=== PATIENT | male | born 1990 | race Caucasian/White ===

== ENCOUNTER 2017-01-16 06:46 | Emergency (ER) | payer OTHER ==
[~2017-01-16] VITALS: Ht 172.7 cm; Wt 56.7 kg
[~2017-01-16 06:46] MED LIST: /ADVA50050; /CELE20CA OR; /ESCI20TA OR; AMIT10TA2 OR; AMIT25TA2 OR; CELE100C OR; CELE10TA OR; CELE10TA PO; CELE20TA OR; DEPA500T OR; DEPA500T2 OR; FLEXERIL OR; FLEXERIL PO; IMIT100T OR; MELOPOW OR; MELOPOW PO; MOTR200T4 PO; NICORETTE GUM PO; PROP10TAB OR; PROP60TA OR; PROV90AE; RISP1TAB OR; TRAZ50TA OR; ZYPR15TA OR
[2017-01-16 06:49] VITALS: BP 118/74
[2017-01-16] MEDS ORDERED: PERC5TAB6 PO (06:54)
[2017-01-16] MEDS ORDERED: GI COCKTAIL 50ML BTL(HYOSCYAMINE/MAALOX/LIDOCAINE VISCOUS)(1:3:1) PO ONE (08:00)
== END 2017-01-16 08:08 | disposition home or self-care (01) ==
LOC: M ED 07:48
DX: K29.00 Acute gastritis without bleeding (principal); T65.891A Toxic effect of other specified substances, accidental (unintentional), initial encounter; X58.XXXA Exposure to other specified factors, initial encounter; Y92.89 Other specified places as the place of occurrence of the external cause; F32.9 Major depressive disorder, single episode, unspecified; R56.9 Unspecified convulsions; M54.5 Low back pain; F17.210 Nicotine dependence, cigarettes, uncomplicated; Z91.040 Latex allergy status

== ENCOUNTER 2017-04-10 11:11 | Emergency (ER) | payer MEDICAID, OTHER, SELFPAY ==
[~2017-04-10] VITALS: Ht 172.7 cm; Wt 57.2 kg
[~2017-04-10 11:11] MED LIST changes: +PERC5TAB12 PO
[2017-04-10] MEDS ORDERED: TYLE325T5 PO (11:18)
[2017-04-10] MEDS ORDERED: IBUP-1022 PO (11:18)
[2017-04-10] MEDS ORDERED: GASTROGRAFIN SOLUTION 30ML (Q9963) As Ordered ONE (11:24)
[2017-04-10] MEDS ORDERED: ONDANSETRON 4MG/2ML VIAL (J2405) IV ONE (12:00)
[2017-04-10] MEDS ORDERED: MORPHINE 2 MG/ML 1ML SYRINGE IV ONE (12:00)
[2017-04-10] MEDS ORDERED: GASTROGRAFIN SOLUTION 30ML (Q9963) PO ONE ×2 (12:30→13:00)
[2017-04-10] MEDS ORDERED: ISOVUE-370 76% 100ML VIAL (Q9967) As Ordered ONE (13:39)
[2017-04-10 14:18] LABS: BASO # 0.1 K/mm3 (0.0-0.2); BASO % 0.4 % (0.0-1.0); EOS # 0.1 K/mm3 (0.0-0.50); EOS % 0.5 % (0.0-3.0); LARGE UNSTAINED CELL # 0.1 K/mm3 (0.0-0.4); LARGE UNSTAINED CELL % 0.9 % (0.0-4.0); LYMPH # 1.4 K/mm3 (1.5-6.5); LYMPH % 10.4 % (24.0-44.0); MEAN CORPUSCULAR HEMOGLOBIN 31.5 pg (27.0-33.0); MEAN CORPUSCULAR HGB CONC 35.3 g/dl (32.0-36.5); MEAN CORPUSCULAR VOLUME 89.4 fl (80.0-96.0); MONO # 0.5 K/mm3 (0.0-0.8); MONO % 3.7 % (0.0-5.0); NEUTROPHILS # 11.7 K/mm3 (1.8-7.7); PLATELET COUNT, AUTOMATED 220 k/mm3 (150-450); RED CELL DISTRIBUTION WIDTH 11.8 % (11.5-14.5); WHITE BLOOD COUNT 13.9 K/mm3 (4.0-10.0)
[2017-04-10 14:22] LABS: ALBUMIN 4.1 GM/DL (3.2-5.2); ALBUMIN/GLOBULIN RATIO 1.17 (1.00-1.93); ALKALINE PHOSPHATASE 62 U/L (45-117); ALT/SGPT 34 U/L (12-78); AMYLASE 43 U/L (25-115); ANION GAP 4 MEQ/L (8-16); AST/SGOT 23 U/L (15-37); BILIRUBIN,DIRECT 0.2 MG/DL (0.0-0.2); BILIRUBIN,TOTAL 0.7 MG/DL (0.2-1.0); BLOOD UREA NITROGEN 13 MG/DL (7-18); CALCIUM LEVEL 8.7 MG/DL (8.5-10.1); CARBON DIOXIDE LEVEL 29 MEQ/L (21-32); CHLORIDE LEVEL 104 MEQ/L (98-107); GLOMERULAR FILTRATION RATE > 60.0 (>60); GLUCOSE, FASTING 85 MG/DL (70-105); POTASSIUM SERUM 4.4 MEQ/L (3.5-5.1); SODIUM LEVEL 137 MEQ/L (136-145); TOTAL PROTEIN 7.6 GM/DL (6.4-8.2)
--- NOTE | 2017-04-10 14:31 | REP ---
Clinical: Left lower quadrant pain. Technique: Axial contrast enhanced images from the lung bases to the pubic symphysis using oral and 100 ml Isovue 370 intravenous contrast material with coronal and sagittal re-formations. Findings: Acute left lower lobe infiltrate likely related to patient's symptoms. Liver, spleen, pancreas, gallbladder, bilateral adrenal glands and kidneys are normal. The enteric system is without obstruction or acute inflammatory process. Pelvis demonstrates normal bladder and age appropriate prostate/seminal vesicles. Normal terminal ileum and appendix identified in the right lower quadrant. No ascites. No free air. No adenopathy. Vasculature normal. Musculoskeletal structures are intact. Impression: Acute left lower lobe pneumonia. Signed by Andres Mack MD 04/10/2017 02:22 P
[2017-04-10] MEDS ORDERED: ZITHTAB PO (14:32)
[2017-04-10] MEDS ORDERED: REGL10TA6 PO (14:32)
[2017-04-10 14:39] VITALS: BP 120/69
== END 2017-04-10 14:42 | disposition home or self-care (01) ==
LOC: M ED 11:11
DX: J18.9 Pneumonia, unspecified organism (principal); R11.2 Nausea with vomiting, unspecified; R10.32 Left lower quadrant pain; G40.909 Epilepsy, unspecified, not intractable, without status epilepticus; F32.9 Major depressive disorder, single episode, unspecified; F41.9 Anxiety disorder, unspecified; F17.200 Nicotine dependence, unspecified, uncomplicated; Z91.040 Latex allergy status
CPT/HCPCS: 74177; 80048; 80076; 81001; 82150; 83690; 85025; 86140; 96374; 96375; 99283; J2405; Q9963; Q9967

== ENCOUNTER 2017-06-02 21:37 | Emergency (ER) | payer MEDICAID, OTHER, SELFPAY ==
[~2017-06-02] VITALS: Ht 172.7 cm; Wt 60.5 kg
[~2017-06-02 21:37] MED LIST changes: +IBUP-1022 PO; +REGL10TA6 PO; +TYLE325T5 PO; +ZITHTAB PO
[2017-06-02] MEDS ORDERED: PROAAER10 (21:47)
[2017-06-02] MEDS ORDERED: IBUP-1022 PO (22:29)
[2017-06-02] MEDS ORDERED: BACT800T5 PO (22:29)
[2017-06-02] MEDS ORDERED: IBUPROFEN 600 MG TAB PO ONE (22:30)
[2017-06-02] MEDS ORDERED: BACTRIM 160MG/800MG DS TAB PO ONE (22:30)
[2017-06-02 22:46] VITALS: BP 111/68
== END 2017-06-02 22:53 | disposition home or self-care (01) ==
LOC: M ED 21:37
DX: L03.211 Cellulitis of face (principal); J45.909 Unspecified asthma, uncomplicated; F17.200 Nicotine dependence, unspecified, uncomplicated; Z91.040 Latex allergy status

== ENCOUNTER → 2017-08-25 | Outpatient (CLI) | payer OTHER ==
[~2017-08-25] MED LIST changes: +BACT800T5 PO; +PROAAER10
--- NOTE | 2017-08-25 19:25 | REP ---
CHEST, TWO VIEWS: COMPARISON: 07/22/2015 There is no evidence of acute infiltrate. No pleural effusion is seen. The heart is normal in size. The mediastinal silhouette is unremarkable. The visualized osseous structures are intact. IMPRESSION: No acute pulmonary disease. Signed by Rush Quezada MD 08/25/2017 08:14 P
[2017-08-25 19:34] LABS: BASO # 0.1 10^3/uL (0.0-0.2); BASO % 0.2 % (0.0-1.0); IMMATURE GRANULOCYTE % 1.2 % (0-0); LYMPH # 1.9 10^3/uL (1.5-6.5); MEAN CORPUSCULAR HEMOGLOBIN 29.9 pg (27.0-33.0); MEAN CORPUSCULAR HGB CONC 34.1 g/dl (32.0-36.5); MEAN CORPUSCULAR VOLUME 87.6 fl (80.0-96.0); MONO # 1.3 10^3/uL (0.0-0.8); MONO % 5.3 % (0.0-5.0); NEUTROPHILS # 20.8 10^3/uL (1.8-7.7); NEUTROPHILS % 85.3 % (36.0-66.0); PLATELET COUNT, AUTOMATED 208 10^3/uL (150-450); RED CELL DISTRIBUTION WIDTH 12.3 % (11.5-14.5); WHITE BLOOD COUNT 24.3 10^3/uL (4.0-10.0)
[2017-08-25 19:43] LABS: ALBUMIN 4.5 GM/DL (3.2-5.2); ALBUMIN/GLOBULIN RATIO 1.45 (1.00-1.93); ALKALINE PHOSPHATASE 62 U/L (45-117); ALT/SGPT 19 U/L (12-78); ANION GAP 8 MEQ/L (8-16); AST/SGOT 15 U/L (7-37); BILIRUBIN,TOTAL 2.2 MG/DL (0.2-1.0); BLOOD UREA NITROGEN 12 MG/DL (7-18); CALCIUM LEVEL 9.3 MG/DL (8.5-10.1); CARBON DIOXIDE LEVEL 28 MEQ/L (21-32); CHLORIDE LEVEL 99 MEQ/L (98-107); CREATININE FOR GFR 1.14 MG/DL (0.70-1.30); GLOMERULAR FILTRATION RATE > 60.0 (>60); GLUCOSE, FASTING 91 MG/DL (70-105); POTASSIUM SERUM 4.2 MEQ/L (3.5-5.1); SODIUM LEVEL 135 MEQ/L (136-145); TOTAL PROTEIN 7.6 GM/DL (6.4-8.2)
== END ==
LOC: M WUC 18:08
PROVIDERS: ATTEND Physician Assistant
DX: R50.9 Fever, unspecified (principal); R05 Cough; L04.0 Acute lymphadenitis of face, head and neck

== ENCOUNTER 2017-12-22 17:41 | Emergency (ER) | payer OTHER ==
[2017-12-22] MEDS ORDERED: ISOVUE-370 76% 100ML VIAL (Q9967) As Ordered (19:18)
[2017-12-22] MEDS: MORPHINE 2 MG/ML 1ML SYRINGE (J2270) IV (19:55)
[2017-12-22 20:02] LABS: BASO % 0.3 % (0.0-1.0); EOS # 0.1 10^3/uL (0.0-0.50); EOS % 0.6 % (0.0-3.0); HEMATOCRIT 35.9 % (42.0-52.0); HEMOGLOBIN 12.8 g/dl (14.0-18.0); IMMATURE GRANULOCYTE % 0.3 % (0-3.0); LYMPH % 19.9 % (24.0-44.0); MEAN CORPUSCULAR HEMOGLOBIN 30.7 pg (27.0-33.0); MEAN CORPUSCULAR HGB CONC 35.7 g/dl (32.0-36.5); MEAN CORPUSCULAR VOLUME 86.1 fl (80.0-96.0); MONO # 0.5 10^3/uL (0.0-0.8); MONO % 4.9 % (0.0-5.0); NEUTROPHILS # 7.5 10^3/uL (1.8-7.7); PLATELET COUNT, AUTOMATED 194 10^3/uL (150-450); RED BLOOD COUNT 4.17 10^6/uL (4.30-6.10); RED CELL DISTRIBUTION WIDTH 12.6 % (11.5-14.5); WHITE BLOOD COUNT 10.1 10^3/uL (4.0-10.0)
[2017-12-22 20:36] LABS: ANION GAP 7 MEQ/L (8-16); BLOOD UREA NITROGEN 12 MG/DL (7-18); CALCIUM LEVEL 8.4 MG/DL (8.5-10.1); CARBON DIOXIDE LEVEL 27 MEQ/L (21-32); CHLORIDE LEVEL 107 MEQ/L (98-107); CPK CREATINE PHOSPHOKINASE 148 U/L (39-308); CREATININE FOR GFR 0.86 MG/DL (0.70-1.30); GLOMERULAR FILTRATION RATE > 60.0 (>60); GLUCOSE, FASTING 87 MG/DL (70-100); MB/CK RELATIVE INDEX 0.67 (< OR =4); POTASSIUM SERUM 3.8 MEQ/L (3.5-5.1); SODIUM LEVEL 141 MEQ/L (136-145); TROPONIN I < 0.02 NG/ML (< 0.10)
[2017-12-22] MEDS: NORCO 5/325MG TABLET (BULK FOR ED) PO (21:01)
== END 2017-12-22 21:13 | disposition home or self-care (01) ==
LOC: M ED 17:41
DX: Z04.1 Encounter for examination and observation following transport accident (principal); S16.1XXA Strain of muscle, fascia and tendon at neck level, initial encounter; V57.5XXA Driver of pick-up truck or van injured in collision with fixed or stationary object in traffic accident, initial encounter; Y92.410 Unspecified street and highway as the place of occurrence of the external cause; F17.200 Nicotine dependence, unspecified, uncomplicated; Z91.040 Latex allergy status
CPT/HCPCS: Q9967

== ENCOUNTER 2018-03-31 19:22 | Emergency (ER) | payer OTHER ==
[2018-03-31] MEDS: NORCO, ANEXSIA 5/325MG TABLET (HYDROcodone/ACETAMINOPHEN) PO (20:45)
== END 2018-03-31 23:13 | disposition home or self-care (01) ==
LOC: M ED 19:22
DX: S40.012A Contusion of left shoulder, initial encounter (principal); S20.229A Contusion of unspecified back wall of thorax, initial encounter; W50.0XXA Accidental hit or strike by another person, initial encounter; Y92.099 Unspecified place in other non-institutional residence as the place of occurrence of the external cause; Y93.9 Activity, unspecified; Y99.9 Unspecified external cause status; R56.9 Unspecified convulsions; J45.909 Unspecified asthma, uncomplicated; Z72.0 Tobacco use; Z91.040 Latex allergy status
CPT/HCPCS: 73030

== ENCOUNTER 2018-06-29 19:16 | Emergency (ER) | payer OTHER | END 2018-06-29 21:36 | disposition left against medical advice (07) | LOC: M ED 19:16 | DX: Z71.1 Person with feared health complaint in whom no diagnosis is made (principal); Z53.21 Procedure and treatment not carried out due to patient leaving prior to being seen by health care provider ==

== ENCOUNTER 2018-07-30 10:21 | Outpatient (RCR) | payer OTHER | END 2018-08-08 | LOC: M PT 10:21 | DX: M25.512 Pain in left shoulder (principal); M54.2 Cervicalgia ==

== ENCOUNTER 2018-08-15 10:56 | Outpatient (RCR) | payer OTHER | END 2018-09-07 | LOC: M PT 10:56 | DX: M25.512 Pain in left shoulder (principal); M54.2 Cervicalgia | CPT/HCPCS: 97010 ==

== ENCOUNTER → 2018-12-18 | Outpatient (REF) | payer OTHER ==
[~2018-12-18] MED LIST changes: +BACL10TA2 PO; +DULO1CAP PO; +IBUP80TA PO; +VENTAER INH
[2018-12-18 18:26] LABS: APPEARANCE, URINE CLEAR (CLEAR); BACTERIA, URINE AUTO NEGATIVE (NEGATIVE); BILIRUBIN, URINE AUTO NEGATIVE (NEGATIVE); BLOOD, URINE BLOOD NEGATIVE (NEGATIVE); COLOR, URINE STRAW (YELLOW); GLUCOSE, URINE (UA) AUTO NEGATIVE (NEGATIVE); KETONE, URINE AUTO NEGATIVE (NEGATIVE); LEUKOCYTE ESTERASE, URINE AUTO NEGATIVE (NEGATIVE); NITRITE, URINE AUTO NEGATIVE (NEGATIVE); PROTEIN, URINE AUTO NEGATIVE (NEGATIVE); RBC, URINE AUTO 0 /HPF (0-3); SPECIFIC GRAVITY URINE AUTO 1.004 (1.002-1.035); SQUAMOUS EPITHELIAL CELL UR AU 0 /HPF (0-6); UROBILINOGEN, URINE AUTO 0.2 mg/dL (0.0-2.0); WBC, URINE AUTO 0 /HPF (0-3)
[2018-12-18 19:23] LABS: BASO # 0.1 10^3/uL (0.0-0.2); BASO % 0.4 % (0.0-1.0); EOS # 0.4 10^3/uL (0.0-0.50); EOS % 3.3 % (0.0-3.0); HEMATOCRIT 47.3 % (42.0-52.0); HEMOGLOBIN 15.9 g/dl (13.5-17.5); LYMPH # 2.6 10^3/uL (1.5-6.5); LYMPH % 21.3 % (24.0-44.0); MEAN CORPUSCULAR HEMOGLOBIN 31.2 pg (27.0-33.0); MEAN CORPUSCULAR HGB CONC 33.6 g/dl (32.0-36.5); MEAN CORPUSCULAR VOLUME 92.7 fl (80.0-96.0); MONO # 0.5 10^3/uL (0.0-0.8); MONO % 3.7 % (0.0-5.0); NEUTROPHILS # 8.6 10^3/uL (1.8-7.7); NEUTROPHILS % 71.1 % (36.0-66.0); PLATELET COUNT, AUTOMATED 236 10^3/uL (150-450); WHITE BLOOD COUNT 12.1 10^3/uL (4.0-10.0)
[2018-12-18 19:24] LABS: ALBUMIN 4.4 GM/DL (3.2-5.2); ALT/SGPT 29 U/L (12-78); BILIRUBIN,TOTAL 1.3 MG/DL (0.2-1.0); BLOOD UREA NITROGEN 8 MG/DL (7-18); CALCIUM LEVEL 8.7 MG/DL (8.5-10.1); CARBON DIOXIDE LEVEL 29 MEQ/L (21-32); CHLORIDE LEVEL 106 MEQ/L (98-107); CHOLESTEROL LEVEL 225 MG/DL (<200); CHOLESTEROL RISK RATIO 6.428 (<5); CREATININE FOR GFR 1.11 MG/DL (0.70-1.30); FOLATE 4.4 NG/ML; GLOMERULAR FILTRATION RATE > 60.0 (>60); GLUCOSE, FASTING 83 MG/DL (70-100); HDL CHOLESTEROL 35 MG/DL (>40); LDL CHOLESTEROL 165 MG/DL (<100); NON-HDL-C 190 MG/DL; POTASSIUM SERUM 4.2 MEQ/L (3.5-5.1); SODIUM LEVEL 141 MEQ/L (136-145); THYROID STIMULATING HORMONE 0.637 uIU/ML (0.358-3.740); TOTAL 25(OH) VITAMIN D 12.4 NG/ML (30.0-100.0); TOTAL PROTEIN 7.6 GM/DL (6.4-8.2); TRIGLYCERIDES LEVEL 123 MG/DL (<150); VITAMIN B12 LEVEL 897 PG/ML
[2018-12-18 19:30] LABS: HEMOGLOBIN A1c 5.3 %
== END ==
LOC: M LAB REF 17:08
PROVIDERS: ATTEND Nurse Practitioner Family
DX: Z13.9 Encounter for screening, unspecified (principal)

== ENCOUNTER 2019-05-11 13:31 | Emergency (ER) | payer MEDICAID, OTHER, SELFPAY ==
[~2019-05-11] VITALS: Ht 172.7 cm; Wt 60.9 kg
[~2019-05-11 13:31] MED LIST changes: -/ADVA50050; -/CELE20CA OR; -/ESCI20TA OR; +ADVA1AER2; +CELE1CAP4 OR; -DULO1CAP PO; +DULO1CAP4 PO; +LEXA1TAB2 OR
[2019-05-11 13:32] VITALS: BP 124/85
[2019-05-11] MEDS ORDERED: MAGICMW SSP (13:55)
== END 2019-05-11 14:08 | disposition home or self-care (01) ==
LOC: M ED 13:31
DX: S01.512A Laceration without foreign body of oral cavity, initial encounter (principal); X58.XXXA Exposure to other specified factors, initial encounter; Y92.9 Unspecified place or not applicable; Y93.89 Activity, other specified; Y99.9 Unspecified external cause status; R56.9 Unspecified convulsions; J45.909 Unspecified asthma, uncomplicated; M54.9 Dorsalgia, unspecified; F41.9 Anxiety disorder, unspecified; F32.9 Major depressive disorder, single episode, unspecified; Z87.440 Personal history of urinary (tract) infections; Z72.0 Tobacco use; Z91.040 Latex allergy status

== ENCOUNTER → 2019-08-21 | Outpatient (REF) | payer OTHER ==
[~2019-08-21] MED LIST changes: +MAGICMW SSP
== END ==
LOC: M LAB REF 12:41
PROVIDERS: ATTEND Nurse Practitioner Family
DX: J02.9 Acute pharyngitis, unspecified (principal)

== ENCOUNTER → 2019-09-03 | Outpatient (REF) | payer OTHER ==
[~2019-09-03] MED LIST changes: +ACET-683 PO
[2019-09-03 12:56] LABS: ALBUMIN 4.3 GM/DL (3.2-5.2); ALT/SGPT 18 U/L (12-78); BILIRUBIN,TOTAL 0.5 MG/DL (0.2-1.0); BLOOD UREA NITROGEN 8 MG/DL (7-18); CALCIUM LEVEL 9.2 MG/DL (8.5-10.1); CARBON DIOXIDE LEVEL 28 MEQ/L (21-32); CHLORIDE LEVEL 107 MEQ/L (98-107); CREATININE FOR GFR 1.11 MG/DL (0.70-1.30); GLOMERULAR FILTRATION RATE > 60.0 (>60); GLUCOSE, FASTING 98 MG/DL (70-100); POTASSIUM SERUM 4.5 MEQ/L (3.5-5.1); SODIUM LEVEL 139 MEQ/L (136-145); TOTAL PROTEIN 7.6 GM/DL (6.4-8.2)
[2019-09-03 12:57] LABS: BASO # 0.1 10^3/uL (0.0-0.2); BASO % 0.8 % (0.0-1.0); EOS # 0.5 10^3/uL (0.0-0.5); EOS % 7.6 % (0.0-3.0); HEMOGLOBIN 15.5 g/dl (13.5-17.5); LYMPH # 2.8 10^3/uL (1.5-5.0); LYMPH % 46.2 % (24.0-44.0); MEAN CORPUSCULAR HGB CONC 33.7 g/dl (32.0-36.5); MONO # 0.3 10^3/uL (0.0-0.8); NEUTROPHILS # 2.4 10^3/uL (1.5-8.5); NEUTROPHILS % 40.2 % (36.0-66.0); PLATELET COUNT, AUTOMATED 238 10^3/uL (150-450); WHITE BLOOD COUNT 6.1 10^3/uL (4.0-10.0)
== END ==
LOC: M LAB REF 11:47
PROVIDERS: ATTEND Nurse Practitioner Family
DX: M79.644 Pain in right finger(s) (principal)

== ENCOUNTER 2019-09-04 11:59 | Emergency (ER) | payer MEDICAID, OTHER ==
[~2019-09-04] VITALS: Ht 172.7 cm; Wt 61.5 kg
[2019-09-04 11:59] VITALS: BP 126/96
[~2019-09-04 11:59] MED LIST changes: -ACET-683 PO
[2019-09-04] MEDS ORDERED: IBUP-1022 PO (12:08)
[2019-09-04] MEDS ORDERED: ACET-683 PO (12:08)
[2019-09-04] MEDS ORDERED: NORCO, ANEXSIA 5/325MG TABLET (HYDROcodone/ACETAMINOPHEN) PO ONE (12:45)
--- NOTE | 2019-09-04 12:46 | REP ---
RIGHT 3RD DIGIT: Four views of right 3rd digit are performed. There is no acute fracture, dislocation, or intrinsic bone disease. IMPRESSION: No fracture or dislocation. Electronically Signed by Rush Quezada MD 09/04/2019 12:49 P
== END 2019-09-04 13:20 | disposition home or self-care (01) ==
LOC: M ED 11:59
DX: S60.031A Contusion of right middle finger without damage to nail, initial encounter (principal); W20.8XXA Other cause of strike by thrown, projected or falling object, initial encounter; Y92.098 Other place in other non-institutional residence as the place of occurrence of the external cause; F17.210 Nicotine dependence, cigarettes, uncomplicated; Z91.040 Latex allergy status

== ENCOUNTER 2020-01-06 12:15 | Emergency (ER) | payer MEDICAID, OTHER ==
[~2020-01-06] VITALS: Ht 172.7 cm; Wt 59.9 kg
[~2020-01-06 12:15] MED LIST changes: +ACET-683 PO
[2020-01-06] MEDS ORDERED: CYCLOBENZAPRINE 5MG TABLET PO ONE (13:15)
[2020-01-06] MEDS ORDERED: KETOROLAC 60 MG/2 ML VIAL (J1885) IM ONE (13:15)
--- NOTE | 2020-01-06 13:32 | REP ---
REASON FOR EXAM: Trauma. There is no pertinent prior for comparison. FINDINGS: The joint spaces are symmetric and relatively well maintained. There is no evidence of acute fracture or destructive osseous lesion. IMPRESSION: Negative hand. Electronically Signed by Joe Ayoub DO 01/06/2020 02:09 P
--- NOTE | 2020-01-06 13:33 | REP ---
REASON FOR EXAM: Trauma. FINDINGS: Five views of the ribs show no acute fracture or destructive osseous lesion. The accompanying frontal view of the chest shows no cardiomegaly, infiltrates, effusions or pneumothoraces. IMPRESSION: Negative left ribs series. Electronically Signed by Joe Ayoub DO 01/06/2020 02:09 P
[2020-01-06 14:14] VITALS: BP 119/70
== END 2020-01-06 14:16 | disposition home or self-care (01) ==
LOC: M ED 12:15
DX: M79.641 Pain in right hand (principal); R07.81 Pleurodynia; Y04.8XXA Assault by other bodily force, initial encounter; Y07.02 Wife, perpetrator of maltreatment and neglect; J45.909 Unspecified asthma, uncomplicated; R56.9 Unspecified convulsions; F33.9 Major depressive disorder, recurrent, unspecified; F41.9 Anxiety disorder, unspecified; Z91.040 Latex allergy status; F17.210 Nicotine dependence, cigarettes, uncomplicated
CPT/HCPCS: 71101; 73130; 96372; 99283; J1885

== ENCOUNTER 2020-10-01 09:28 | Emergency (ER) | payer OTHER ==
[~2020-10-01] VITALS: Ht 172.7 cm; Wt 59.1 kg
[2020-10-01] MEDS ORDERED: ASPIRIN 81 MG CHEW TABLET PO ONE (10:00)
[2020-10-01 10:27] LABS: BASO % 0.3 % (0.0-1.0); EOS # 0.4 10^3/uL (0.0-0.5); EOS % 6.4 % (0.0-3.0); HEMATOCRIT 41.3 % (42.0-52.0); HEMOGLOBIN 13.5 g/dl (13.5-17.5); LYMPH # 2.5 10^3/uL (1.5-5.0); LYMPH % 40.5 % (24.0-44.0); MEAN CORPUSCULAR HEMOGLOBIN 29.2 pg (27.0-33.0); MEAN CORPUSCULAR HGB CONC 32.7 g/dl (32.0-36.5); MEAN CORPUSCULAR VOLUME 89.2 fl (80.0-96.0); MONO # 0.3 10^3/uL (0.0-0.8); MONO % 5.6 % (0.0-5.0); NEUTROPHILS # 2.9 10^3/uL (1.5-8.5); NEUTROPHILS % 46.9 % (36.0-66.0); PLATELET COUNT, AUTOMATED 213 10^3/uL (150-450); RED BLOOD COUNT 4.63 10^6/uL (4.30-6.10); WHITE BLOOD COUNT 6.1 10^3/uL (4.0-10.0)
[2020-10-01 10:39] LABS: INR 0.88; PROTHROMBIN TIME 12.1 SECONDS (12.5-14.3)
[2020-10-01 10:40] LABS: PARTIAL THROMBOPLASTIN TIME 34.5 SECONDS (24.2-38.5)
--- NOTE | 2020-10-01 10:41 | REP ---
INDICATION: CHEST PAIN COMPARISON: 12/10/2019 TECHNIQUE: PA and lateral. FINDINGS: The mediastinum and cardiac silhouette are normal. The lung phelps are clear and without acute consolidation, effusion, or pneumothorax. The skeletal structures are intact and normal. IMPRESSION: No acute cardiopulmonary process. <Electronically signed by Andres Mack > 10/01/20 [id number]
[2020-10-01 10:58] LABS: ALBUMIN 3.8 GM/DL (3.2-5.2); ALT/SGPT 45 U/L (12-78); BILIRUBIN,DIRECT 0.1 MG/DL (0.0-0.2); BILIRUBIN,TOTAL 0.6 MG/DL (0.2-1.0); BLOOD UREA NITROGEN 10 MG/DL (7-18); CALCIUM LEVEL 9.5 MG/DL (8.5-10.1); CARBON DIOXIDE LEVEL 29 MEQ/L (21-32); CHLORIDE LEVEL 107 MEQ/L (98-107); CK-MB VALUE MASS < 1.0 NG/ML (<3.6); CPK CREATINE PHOSPHOKINASE 68 U/L (39-308); CREATININE FOR GFR 0.88 MG/DL (0.70-1.30); FREE T4 1.17 NG/DL (0.76-1.46); GLOMERULAR FILTRATION RATE > 60.0 (>60); GLUCOSE, FASTING 93 MG/DL (70-100); LIPASE 117 U/L (73-393); MB/CK RELATIVE INDEX 1.47 (< OR =4); POTASSIUM SERUM 3.9 MEQ/L (3.5-5.1); SODIUM LEVEL 139 MEQ/L (136-145); TOTAL PROTEIN 6.7 GM/DL (6.4-8.2); TROPONIN I < 0.02 NG/ML (< 0.10)
[2020-10-01 11:05] LABS: D-DIMER QUANT < 270 ng/ml (<500)
[2020-10-01 12:00] VITALS: BP 122/74
--- NOTE | 2020-10-02 07:36 | ECGEPIP ---
[facility] - ED Test Date: 2020-10-01 Pat Name: DEBORAH MARTINEZ Department: Room: - Gender: Male Station Engineer: huey : 1990 Requested By: AMANDEEP Ochoa Order Number: [id number] Reading MD: Nasrin Vera Measurements Intervals [place] Rate: 57 P: 50 OR: 145 QRS: 41 QRSD: 102 T: 37 QT: 400 QTc: 390 Interpretive Statements SINUS BRADYCARDIA MODERATE ST DEPRESSION SIMILAR 12/22/17 Electronically Signed on 10-02-2020 7:35:43 EST by Nasrin Vera
== END 2020-10-01 12:32 | disposition left against medical advice (07) ==
LOC: M ED 09:28 → EDBD 09:28 → M ED 12:32
DX: R07.9 Chest pain, unspecified (principal); R06.02 Shortness of breath; Z91.040 Latex allergy status; Z86.69 Personal history of other diseases of the nervous system and sense organs

== ENCOUNTER 2022-04-07 15:33 | Emergency (ER) | payer OTHER ==
[~2022-04-07] VITALS: Ht 170.2 cm; Wt 61.4 kg
[2022-04-07 16:09] LABS: HEMATOCRIT 41.3 % (42.0-52.0); HEMOGLOBIN 14.7 g/dl (13.5-17.5); MEAN CORPUSCULAR HEMOGLOBIN 31.7 pg (27.0-33.0); MEAN CORPUSCULAR HGB CONC 35.6 g/dl (32.0-36.5); MEAN CORPUSCULAR VOLUME 89.2 fl (80.0-96.0); PLATELET COUNT, AUTOMATED 270 10^3/uL (150-450); RED BLOOD COUNT 4.63 10^6/uL (4.30-6.10); WHITE BLOOD COUNT 8.5 10^3/uL (4.0-10.0)
[2022-04-07 16:43] LABS: ALBUMIN 4.1 GM/DL (3.2-5.2); ALT/SGPT 16 U/L (12-78); BILIRUBIN,DIRECT 0.3 MG/DL (0.0-0.2); BILIRUBIN,TOTAL 0.9 MG/DL (0.2-1.0); BLOOD UREA NITROGEN 10 MG/DL (7-18); CALCIUM LEVEL 9.3 MG/DL (8.5-10.1); CARBON DIOXIDE LEVEL 24 MEQ/L (21-32); CHLORIDE LEVEL 108 MEQ/L (98-107); CREATININE FOR GFR 1.03 MG/DL (0.70-1.30); ETHYL ALCOHOL (ETHANOL) < 0.003 % (0.000-0.010); GLOMERULAR FILTRATION RATE > 60.0 (>60); GLUCOSE, FASTING 99 MG/DL (70-100); POTASSIUM SERUM 3.5 MEQ/L (3.5-5.1); SALICYLATE LEVEL 4.2 MG/DL (5.0-30.0); SODIUM LEVEL 141 MEQ/L (136-145); TOTAL PROTEIN 7.4 GM/DL (6.4-8.2)
[2022-04-07 16:51] LABS: AMPHETAMINES LEVEL URINE NEGATIVE (NEGATIVE); BARBITURATES URINE NEGATIVE (NEGATIVE); BENZODIAZEPINES URINE NEGATIVE (NEGATIVE); CANNABINOIDS URINE POSITIVE (NEGATIVE); COCAINE METABOLITE URINE NEGATIVE (NEGATIVE); METHADONE URINE NEGATIVE (NEGATIVE); OPIATES URINE NEGATIVE (NEGATIVE); PHENCYCLIDINE URINE NEGATIVE (NEGATIVE)
[2022-04-07 16:55] LABS: RSV AMPLIFICATION NEGATIVE (NEGATIVE)
[2022-04-07 18:11] VITALS: BP 115/80
[2022-04-07 19:42] LABS: ACETAMINOPHEN LEVEL < 2.0 UG/ML (0.0-30.0)
== END 2022-04-07 18:13 | disposition home or self-care (01) ==
LOC: M ED 15:33
DX: F43.20 Adjustment disorder, unspecified (principal); F31.9 Bipolar disorder, unspecified; Z91.040 Latex allergy status; F17.200 Nicotine dependence, unspecified, uncomplicated

== ENCOUNTER 2023-12-13 09:18 | Emergency (ER) | payer OTHER, SELFPAY ==
[~2023-12-13] VITALS: Ht 172.7 cm; Wt 56.8 kg
[2023-12-13 12:02] LABS: BASO % 0.4 % (0.0-1.0); EOS % 0.1 % (0.0-3.0); HEMATOCRIT 46.6 % (42.0-52.0); HEMOGLOBIN 16.4 g/dl (13.5-17.5); LYMPH # 1.9 10^3/uL (1.5-5.0); LYMPH % 22.8 % (24.0-44.0); MEAN CORPUSCULAR HEMOGLOBIN 31.4 pg (27.0-33.0); MEAN CORPUSCULAR HGB CONC 35.2 g/dl (32.0-36.5); MEAN CORPUSCULAR VOLUME 89.1 fl (80.0-96.0); MONO # 0.4 10^3/uL (0.0-0.8); MONO % 5.1 % (2.0-8.0); NEUTROPHILS # 5.9 10^3/uL (1.5-8.5); NEUTROPHILS % 71.2 % (36.0-66.0); PLATELET COUNT, AUTOMATED 285 10^3/uL (150-450); RED BLOOD COUNT 5.23 10^6/uL (4.30-6.10); WHITE BLOOD COUNT 8.3 10^3/uL (4.0-10.0)
[2023-12-13] MEDS: NS 1,000 ML IV ONE (12:28)
[2023-12-13 12:29] LABS: C REACTIVE PROTEIN QUANTITATIV < 0.40 MG/DL (<1.0); LIPASE 37 U/L (12-53)
[2023-12-13 12:30] LABS: RSV AMPLIFICATION NEGATIVE (NEGATIVE)
[2023-12-13 12:32] LABS: ALBUMIN 4.6 G/DL (3.2-5.2); ALKALINE PHOSPHATASE 62 U/L (46-116); ALT/SGPT 14 U/L (7.0-40); AST/SGOT 13 U/L (<34); BILIRUBIN,DIRECT 0.4 MG/DL (<0.4); BILIRUBIN,TOTAL 1.3 MG/DL (0.3-1.2); BLOOD UREA NITROGEN 10 MG/DL (9-23); CALCIUM LEVEL 9.1 MG/DL (8.5-10.1); CARBON DIOXIDE LEVEL 28 MMOL/L (20-31); CHLORIDE LEVEL 105 MMOL/L (98-107); CREATININE FOR GFR 0.97 MG/DL (0.70-1.30); GLOMERULAR FILTRATION RATE > 60.0 (>60); GLUCOSE, FASTING 101 MG/DL (60-100); POTASSIUM SERUM 4.1 MMOL/L (3.5-5.1); SODIUM LEVEL 138 MMOL/L (136-145); TOTAL PROTEIN 7.5 G/DL (5.7-8.2)
[2023-12-13] MEDS ORDERED: ONDA4TAB6 PO (14:09)
[2023-12-13 14:11] VITALS: BP 127/80; TEMP 97.1; O2SAT 97
== END 2023-12-13 14:21 | disposition home or self-care (01) ==
LOC: M ED 09:18
DX: A08.4 Viral intestinal infection, unspecified (principal); F17.210 Nicotine dependence, cigarettes, uncomplicated; F12.10 Cannabis abuse, uncomplicated; Z91.040 Latex allergy status; Z79.899 Other long term (current) drug therapy

== ENCOUNTER → 2024-01-22 | Outpatient (REF) | payer OTHER, MEDICAID ==
[~2024-01-22] MED LIST changes: +ONDA4TAB6 PO
== END ==
LOC: M LAB REF 18:12
PROVIDERS: ATTEND Nurse Practitioner Family
DX: R10.10 Upper abdominal pain, unspecified (principal); R15.9 Full incontinence of feces

== ENCOUNTER → 2024-01-23 | Outpatient (CLI) | payer OTHER, MEDICAID ==
[2024-01-23 10:12] LABS: BASO % 0.4 % (0.0-1.0); EOS % 0.2 % (0.0-3.0); HEMATOCRIT 48.7 % (42.0-52.0); HEMOGLOBIN 16.4 g/dl (13.5-17.5); LYMPH # 1.5 10^3/uL (1.5-5.0); LYMPH % 32.6 % (24.0-44.0); MEAN CORPUSCULAR HEMOGLOBIN 30.6 pg (27.0-33.0); MEAN CORPUSCULAR HGB CONC 33.7 g/dl (32.0-36.5); MEAN CORPUSCULAR VOLUME 90.9 fl (80.0-96.0); MONO # 0.7 10^3/uL (0.0-0.8); MONO % 15.3 % (2.0-8.0); NEUTROPHILS # 2.3 10^3/uL (1.5-8.5); NEUTROPHILS % 51.3 % (36.0-66.0); PLATELET COUNT, AUTOMATED 210 10^3/uL (150-450); RED BLOOD COUNT 5.36 10^6/uL (4.30-6.10); WHITE BLOOD COUNT 4.6 10^3/uL (4.0-10.0)
[2024-01-23 10:27] LABS: LIPASE 34 U/L (12-53)
[2024-01-23 10:29] LABS: ALBUMIN 4.1 G/DL (3.2-5.2); ALKALINE PHOSPHATASE 62 U/L (46-116); ALT/SGPT 21 U/L (7.0-40); AMYLASE 63 U/L (30-118); AST/SGOT 21 U/L (<34); BILIRUBIN,TOTAL 0.7 MG/DL (0.3-1.2); BLOOD UREA NITROGEN 13 MG/DL (9-23); CALCIUM LEVEL 9.4 MG/DL (8.5-10.1); CARBON DIOXIDE LEVEL 30 MMOL/L (20-31); CHLORIDE LEVEL 103 MMOL/L (98-107); CREATININE FOR GFR 1.02 MG/DL (0.70-1.30); GLOMERULAR FILTRATION RATE > 60.0 (>60); GLUCOSE, FASTING 87 MG/DL (60-100); POTASSIUM SERUM 5.1 MMOL/L (3.5-5.1); SODIUM LEVEL 137 MMOL/L (136-145); TOTAL PROTEIN 7.1 G/DL (5.7-8.2)
== END ==
LOC: M RAD 08:55
PROVIDERS: ATTEND Nurse Practitioner Family
DX: R15.9 Full incontinence of feces (principal)